=== PATIENT | female | born 1980 | race Caucasian/White ===

== ENCOUNTER 2017-09-29 04:43 | Emergency (ER) | payer MEDICAID ==
[2017-09-29] MEDS ORDERED: Dicyclomine 10 MG Cap PO ONE (05:18)
[2017-09-29] MEDS ORDERED: Acetaminophen 500 MG Tab PO ONE (05:18)
--- NOTE | 2017-09-29 05:24 | EDM.PDOC ---
<Samy Woodruff M - Last Filed: 09/29/17 15:07> ED HPI GENERAL MEDICAL PROBLEM - General Chief Complaint: Abdominal Pain Stated Complaint: ABDOMINAL PAIN Time Seen by Provider: 09/29/17 05:10 - Related Data Allergies Allergy/AdvReac Type Severity Reaction Status Date / Time No Known Allergies Allergy Verified 09/29/17 05:42 Home Meds: Home Meds Ciprofloxacin HCl [Cipro] 500 mg PO BID #20 tablet 09/29/17 [Rx] Dicyclomine HCl [Bentyl] 10 mg PO BID PRN #16 capsule 09/29/17 [Rx] metroNIDAZOLE [Flagyl] 500 mg PO Q8H #30 tab 09/29/17 [Rx] Course - Vital Signs Text/Narrative:: Pt was singed out to me at 7 am due to shift changes, pending imaging results Imaging: CT abd. showed sigmoid diverticulitis. No abscess, no perforation Labs: WBC 12K COATER HAND 4.5 UA neg Impression: Sigmoid Diverticulitis Tx: Cipro, Flagyl and bentyl as a prescription Improved Plan: D/C with instructions Last Recorded V/S: Last Vital Signs Temp 37.2 C 09/29/17 05:00 Pulse 88 09/29/17 09:42 Resp 14 09/29/17 09:42 BP 121/82 09/29/17 09:42 Pulse Ox 100 09/29/17 09:42 - Orders/Labs/Meds Labs: Laboratory Tests 09/29/17 09/29/17 09/29/17 Range/Units 05:58 05:58 08:35 WBC 12.3 H (4.5-12.0) X10-3/uL RBC 4.37 (3.23-5.20) x10(6)uL Hgb 13.0 (11.5-15.5) g/dL Hct 38.1 (30.0-51.3) % MCV 87.1 (80-96) fL MCH 29.8 (27.7-33.6) pg MCHC 34.2 (32.2-35.4) g/dL RDW 12.7 (11.5-15.5) % Plt Count 309 (125-369) X10(3)uL C-Reactive Protein 4.5 H* (0.5-0.9) mg/dL Urine Color Yellow (YELLOW) Urine Appearance Clear (CLEAR) Urine pH 7.0 H (5.0-6.5) Ur Specific [place] 1.005 L (1.010-1.025) Urine Protein Negative (NEGATIVE) mg/dL Urine Glucose (UA) Normal (NEGATIVE) mg/dL Urine Ketones Negative (NEGATIVE) mg/dL Urine Occult Blood Negative (NEGATIVE) Urine Nitrite Negative (NEGATIVE) Urine Bilirubin Negative (NEGATIVE) Urine Urobilinogen Normal (NEGATIVE) mg/dL Ur Leukocyte Esterase Negative (NEGATIVE) Urine RBC 0-5 (0) Urine WBC Not seen (0) Ur Squamous Epith Cells Rare (NS,R,O) Urine Bacteria Rare H (NS) Urine HCG, Qual (NEGATIVE) 09/29/17 Range/Units 08:35 WBC (4.5-12.0) X10-3/uL RBC (3.23-5.20) x10(6)uL Hgb (11.5-15.5) g/dL Hct (30.0-51.3) % MCV (80-96) fL MCH (27.7-33.6) pg MCHC (32.2-35.4) g/dL RDW (11.5-15.5) % Plt Count (125-369) X10(3)uL C-Reactive Protein (0.5-0.9) mg/dL Urine Color (YELLOW) Urine Appearance (CLEAR) Urine pH (5.0-6.5) Ur Specific [place] (1.010-1.025) Urine Protein (NEGATIVE) mg/dL Urine Glucose (UA) (NEGATIVE) mg/dL Urine Ketones (NEGATIVE) mg/dL Urine Occult Blood (NEGATIVE) Urine Nitrite (NEGATIVE) Urine Bilirubin (NEGATIVE) Urine Urobilinogen (NEGATIVE) mg/dL Ur Leukocyte Esterase (NEGATIVE) Urine RBC (0) Urine WBC (0) Ur Squamous Epith Cells (NS,R,O) Urine Bacteria (NS) Urine HCG, Qual Negative (NEGATIVE) Meds: Medications Discontinued Medications Generic Name Dose Route Start Last Admin Trade Name Freq PRN Reason Stop Dose Admin Acetaminophen 1,000 mg 09/29/17 05:18 09/29/17 05:48 Tylenol Extra Strength PO 09/29/17 05:19 1,000 mg ONETIME ONE Administration Dicyclomine HCl 20 mg 09/29/17 05:18 09/29/17 05:48 Bentyl PO 09/29/17 05:19 20 mg ONETIME ONE Administration Lactated Ringer's 1,000 mls @ 1,000 mls/hr 09/29/17 06:38 09/29/17 08:10 Ringers, Lactated IV 09/29/17 07:37 1,000 mls/hr BOLUS ONE Administration Iopamidol 100 ml 09/29/17 07:14 09/29/17 08:00 Isovue-370 (76%) IV 09/29/17 07:15 94 ml ONETIME ONE Administration Sodium Chloride 10 ml 09/29/17 06:38 Saline Flush FLUSH ASDIRECTED PRN Keep Vein Open Departure - Departure Time of Disposition: 09:48 Disposition: Home, Self-Care 01 Condition: Good Clinical Impression: Diverticulitis - Discharge Information *PRESCRIPTION DRUG MONITORING PROGRAM REVIEWED*: Yes *COPY OF PRESCRIPTION DRUG MONITORING REPORT IN PATIENT ERICA: Yes Prescriptions: Ciprofloxacin HCl [Cipro] 500 mg PO BID #20 tablet Dicyclomine HCl [Bentyl] 10 mg PO BID PRN #16 capsule PRN Reason: cramping pain metroNIDAZOLE [Flagyl] 500 mg PO Q8H #30 tab Instructions: Diverticulitis Referrals: PCP,None [Primary Care Provider] - Forms: ED Department Discharge Additional Instructions: Please take the meds as recommended, please f/u with PMD/GI please come back if your symptoms get worse acutely <Mg Prado G - Last Filed: 09/30/17 23:50> ED HPI GENERAL MEDICAL PROBLEM - General Source of Information: Reports: Patient, RN History Limitations: Reports: No Limitations - History of Present Illness INITIAL COMMENTS - FREE TEXT/NARRATIVE: 37 yo female here with low abdominal pain that comes in waves and is associated with mild nausea. Stools have been looser than normal for a couple of days. No fever. No dysuria. No self tx. Has not been seen before tonight for this. Has a pHx of appendectomy. No missed menses. Onset: Gradual Onset Date: 09/26/17 Duration: Day(s):, Getting Worse Location: Reports: Abdomen Quality: Reports: Other (crampy) Severity: Moderate Improves with: Reports: None Worsens with: Reports: Other (unknown) Context: Reports: Other (unknown, stools somewhat loose) Associated Symptoms: Reports: Nausea/Vomiting (no vomiting. ). 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 Denies: Anorexia, Black Stool, Bloody Stool, Constipation, Decreased Appetite, Distension, Flatus , Hematemesis, Hematochezia, Melena, Vomiting : Reports: No Symptoms Musculoskeletal: Reports: No Symptoms Skin: Reports: No Symptoms Neurological: Reports: No Symptoms ED EXAM, GI/ABD - Physical Exam Exam: See Below Exam Limited By: No Limitations General Appearance: Alert, WD/WN, No Apparent Distress Eyes: Bilateral: Normal Appearance Ears: Normal External Exam, Normal Canal, Hearing Grossly Normal, Normal TMs Nose: Normal Inspection, Normal Mucosa, No Blood Throat/Mouth: Normal Inspection, Normal Lips, Normal Oropharynx, Normal Voice, No Airway Compromise Head: Atraumatic, Normocephalic Neck: Normal Inspection, Supple Respiratory/Chest: No Respiratory Distress, Lungs Clear, Normal Breath Sounds, No Accessory Muscle Use Cardiovascular: Regular Rate, Rhythm, No Edema GI/Abdominal Exam: Normal Bowel Sounds, Soft, Tender (infraumbilical). No: Non- Tender, No Distention, Distended, Guarding, Rigid, Rebound, Abnormal Bowel Sounds, Hernia Back Exam: Normal Inspection. No: CVA Tenderness (R), CVA Tenderness (L) Extremities: Normal Inspection, Normal Range of Motion, Non-Tender, No Pedal Edema Neurological: Alert, Oriented, CN II-XII Intact, Normal Cognition, No Motor/ Sensory Deficits Psychiatric: Normal Affect, Normal Mood Skin Exam: Warm, Dry, Intact, Normal Color, No Rash Lymphatic: No Adenopathy Course - Vital Signs Last Recorded V/S: Last Vital Signs Temp 37.2 C 09/29/17 05:00 Pulse 88 09/29/17 09:42 Resp 14 09/29/17 09:42 BP 121/82 09/29/17 09:42 Pulse Ox 100 09/29/17 09:42 - Orders/Labs/Meds Labs: Laboratory Tests 09/29/17 09/29/17 09/29/17 Range/Units 05:58 05:58 08:35 WBC 12.3 H (4.5-12.0) X10-3/uL RBC 4.37 (3.23-5.20) x10(6)uL Hgb 13.0 (11.5-15.5) g/dL Hct 38.1 (30.0-51.3) % MCV 87.1 (80-96) fL MCH 29.8 (27.7-33.6) pg MCHC 34.2 (32.2-35.4) g/dL RDW 12.7 (11.5-15.5) % Plt Count 309 (125-369) X10(3)uL C-Reactive Protein 4.5 H* (0.5-0.9) mg/dL Urine Color Yellow (YELLOW) Urine Appearance Clear (CLEAR) Urine pH 7.0 H (5.0-6.5) Ur Specific [place] 1.005 L (1.010-1.025) Urine Protein Negative (NEGATIVE) mg/dL Urine Glucose (UA) Normal (NEGATIVE) mg/dL Urine Ketones Negative (NEGATIVE) mg/dL Urine Occult Blood Negative (NEGATIVE) Urine Nitrite Negative (NEGATIVE) Urine Bilirubin Negative (NEGATIVE) Urine Urobilinogen Normal (NEGATIVE) mg/dL Ur Leukocyte Esterase Negative (NEGATIVE) Urine RBC 0-5 (0) Urine WBC Not seen (0) Ur Squamous Epith Cells Rare (NS,R,O) Urine Bacteria Rare H (NS) Urine HCG, Qual (NEGATIVE) 09/29/17 Range/Units 08:35 WBC (4.5-12.0) X10-3/uL RBC (3.23-5.20) x10(6)uL Hgb (11.5-15.5) g/dL Hct (30.0-51.3) % MCV (80-96) fL MCH (27.7-33.6) pg MCHC (32.2-35.4) g/dL RDW (11.5-15.5) % Plt Count (125-369) X10(3)uL C-Reactive Protein (0.5-0.9) mg/dL Urine Color (YELLOW) Urine Appearance (CLEAR) Urine pH (5.0-6.5) Ur Specific [place] (1.010-1.025) Urine Protein (NEGATIVE) mg/dL Urine Glucose (UA) (NEGATIVE) mg/dL Urine Ketones (NEGATIVE) mg/dL Urine Occult Blood (NEGATIVE) Urine Nitrite (NEGATIVE) Urine Bilirubin (NEGATIVE) Urine Urobilinogen (NEGATIVE) mg/dL Ur Leukocyte Esterase (NEGATIVE) Urine RBC (0) Urine WBC (0) Ur Squamous Epith Cells (NS,R,O) Urine Bacteria (NS) Urine HCG, Qual Negative (NEGATIVE) Meds: Medications Discontinued Medications Generic Name Dose Route Start Last Admin Trade Name Freq PRN Reason Stop Dose Admin Acetaminophen 1,000 mg 09/29/17 05:18 09/29/17 05:48 Tylenol Extra Strength PO 09/29/17 05:19 1,000 mg ONETIME ONE Administration Dicyclomine HCl 20 mg 09/29/17 05:18 09/29/17 05:48 Bentyl PO 09/29/17 05:19 20 mg ONETIME ONE Administration Lactated Ringer's 1,000 mls @ 1,000 mls/hr 09/29/17 06:38 09/29/17 08:10 Ringers, Lactated IV 09/29/17 07:37 1,000 mls/hr BOLUS ONE Administration Iopamidol 100 ml 09/29/17 07:14 09/29/17 08:00 Isovue-370 (76%) IV 09/29/17 07:15 94 ml ONETIME ONE Administration Sodium Chloride 10 ml 09/29/17 06:38 Saline Flush FLUSH ASDIRECTED PRN Keep Vein Open Departure - Departure Condition: Fair - Discharge Information *PRESCRIPTION DRUG MONITORING PROGRAM REVIEWED*: Not Applicable *COPY OF PRESCRIPTION DRUG MONITORING REPORT IN PATIENT ERICA: Not Applicable
[2017-09-29] MEDS ORDERED: Lactated Ringers 1,000 ML IV ONE (06:38)
[2017-09-29] MEDS ORDERED: Sodium Chloride 0.9% 10 ML Syringe FLUSH PRN (06:38)
[2017-09-29] MEDS ORDERED: Iopamidol 755 Mg/ML 100 ML Bottle IV ONE (07:14)
== END 2017-09-29 10:13 | disposition home or self-care (01) ==
LOC: FB.ED 04:43
DX: K57.32 Diverticulitis of large intestine without perforation or abscess without bleeding (principal)
CPT/HCPCS: 36415; 74177; 81001; 81025; 85027; 86140; 96360; 99284; A9270; J7120; Q9967

== ENCOUNTER 2020-08-25 01:20 | Emergency (ER) | payer MEDICAID ==
--- NOTE | 2020-08-25 01:43 | EDM.PDOC ---
ED HPI GENERAL MEDICAL PROBLEM - General Chief Complaint: Skin Complaint Stated Complaint: BLISTERS/ RASH ON LEG ALLERGIC REACTION Time Seen by Provider: 08/25/20 01:39 Source of Information: Reports: Patient History Limitations: Reports: No Limitations - History of Present Illness INITIAL COMMENTS - FREE TEXT/NARRATIVE: 40-year-old female who reports onset 3 days ago of rash on her right lower leg. It initially was a maculopapular rash with some blisters and it seemed to spread over her leg and then also she has developed areas on her left lower leg and now both of her forearm areas. This is a very itchy rash and several areas on her right lower leg are now broken blisters with oozing and increased redness and some swelling and increased warmth in the area as well. She does report a 5/10 level of itching and burning type pain associated with the right lower leg. She has had no fevers or chills. There has been no nausea or vomiting. No difficulty breathing. No weakness or dizziness. She has been eating and drinking normally. He presents to the emergency department via private vehicle with her . They have apparently been on a camping trip for the past 3-4 days and no one else in her family has a similar type rash. They came directly from their camping trip tonight to the emergency department for evaluation. She has been taking oral Benadryl with minimal relief of her itching. She has also been using [id number] Benadryl cream without any relief of her symptoms as well. There are no other associated signs or symptoms. There are no other modifying factors. 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 Oral Benadryl.) Bilateral Leg Pain Score (Numeric/FACES): 2 - Related Data Allergies Allergy/AdvReac Type Severity Reaction Status Date / Time No Known Allergies Allergy Verified 09/29/17 05:42 Home Meds: Home Meds Doxycycline Hyclate 100 mg PO BID #14 tablet 08/25/20 [Rx] Hydrocortisone [Hydrocortisone 2.5% Crm] 30 gm TOP BID #1 tube 08/25/20 [Rx] Mupirocin Oint [Bactroban Oint] 22 gm TP BID #1 tube 08/25/20 [Rx] hydrOXYzine pamoate [Vistaril] 50 mg PO Q6H PRN #20 cap 08/25/20 [Rx] Past Medical History - Past Health History Medical/Surgical History: Denies Medical/Surgical History (No chronic medical problems. 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[employer].) ED ROS GENERAL - Review of Systems Review Of Systems: See Below Constitutional: Denies: Fever, Chills, Malaise, Fatigue HEENT: Denies: Rhinitis, Throat Pain, Other Respiratory: Denies: Shortness of Breath, Cough Cardiovascular: Denies: Chest Pain, Palpitations Endocrine: Denies: Polydypsia, Polyuria GI/Abdominal: Denies: Nausea, Vomiting : Denies: Dysuria, Hematuria Musculoskeletal: Denies: Back Pain, Leg Pain Skin: Reports: Rash, Erythema Neurological: Denies: Dizziness, Headache Psychiatric: Denies: Confusion Hematologic/Lymphatic: Denies: Easy Bleeding, Easy Bruising Immunologic: Denies: Anaphylaxis, Food Allergy ED EXAM, SKIN/RASH Exam: See Below Exam Limited By: No Limitations General Appearance: Alert, No Apparent Distress, Obese Eye Exam: Bilateral Eye: EOMI, Normal Inspection (Sclera are anicteric) Ears: Normal External Exam, Hearing Grossly Normal Nose: Normal Inspection, Normal Mucosa, No Blood Throat/Mouth: Normal Inspection, Normal Oropharynx, Normal Voice, No Airway Compromise Head: Atraumatic, Normocephalic Neck: Normal Inspection, Supple, Non-Tender, Full Range of Motion. No: Lymphadenopathy (L), Other Respiratory/Chest: No Respiratory Distress, Lungs Clear, Normal Breath Sounds, No Accessory Muscle Use, Chest Non-Tender Cardiovascular: Normal Peripheral Pulses, Regular Rate, Rhythm, No Murmur Peripheral Pulses: 2+: Radial (L), Radial (R) GI/Abdominal: Normal Bowel Sounds, Soft, Non-Tender, No Mass Back Exam: Normal Inspection Extremities: Normal Range of Motion, Normal Capillary Refill, Pedal Edema (Right lower leg) Neurological: Alert, Oriented, CN II-XII Intact, Normal Cognition, No Motor/Sensory Deficits Psychiatric: Normal Affect, Normal Mood Skin: Warm, Dry, Excoriations, Increased Warmth, Rash Location, Skin: Upper Extremity, Right, Upper Extremity, Left, Lower Extremity, Right, Lower Extremity, Left Characteristics: Confluent, Patchy, Vesicular Associated features: Warmth, Tenderness, Swelling, Crusting, Weeping Course - Vital Signs Last Recorded V/S: Last Vital Signs Temp 37.0 C 08/25/20 01:30 Pulse 88 08/25/20 01:30 Resp 18 08/25/20 01:30 BP 155/98 H 08/25/20 01:30 Pulse Ox 98 08/25/20 01:30 - Orders/Labs/Meds Orders: Active Orders 24 hr Category Date Time Status Accu Check [Blood Glucose Check, Bedside] [RC] ONETIME Care 08/25/20 02:03 Active Labs: Laboratory Tests 08/25/20 Range/Units 02:04 POC Glucose 103 (80-116) mg/dL Meds: Medications Discontinued Medications Generic Name Dose Route Start Last Admin Trade Name Crow PRN Reason Stop Dose Admin Doxycycline Hyclate 200 mg 08/25/20 02:03 08/25/20 02:10 Doxycycline 100 Mg Tab PO 08/25/20 02:04 200 mg ONETIME ONE Administration - Re-Assessments/Exams Free Text/Narrative Re-Assessment/Exam: 08/25/20 02:00: Patient with evolving rash on her legs and her arms. She is nontoxic appearing. The areas appear to be maculopapular with scattered blisters and with blisters on her right lower leg that appeared to be bacterially superinfected. This does have an appearance of a contact dermatitis and most probably poison casie. Some of the areas on her right lower leg appeared to be cellulitic as well. I will have the nursing staff check a blood sugar but the plan will be hydrocortisone cream to the areas sparingly and then she is to apply Bactroban ointment to the open areas on her right lower leg. Additionally I will also place the patient on doxycycline 100 mg twice daily with her first dose now of doxycycline at 200 mg. I will also give the patient a prescription for Vistaril that she can use for itching as well. 08/25/20 02:07: The patient's blood sugar was 103. I discussed all of the above with the patient and she is in agreement with this plan. Departure - Departure Time of Disposition: 02:10 Disposition: Home, Self-Care 01 Condition: Good Clinical Impression: Wound infection, Cellulitis of right lower leg Contact dermatitis Qualifiers: Contact dermatitis type: irritant Contact dermatitis trigger: unspecified trigger Qualified Code(s): L24.9 - Irritant contact dermatitis, unspecified cause - Discharge Information Prescriptions: Mupirocin Oint [Bactroban Oint] 22 gm TP BID #1 tube Doxycycline Hyclate 100 mg PO BID #14 tablet Hydrocortisone [Hydrocortisone 2.5% Crm] 30 gm TOP BID #1 tube hydrOXYzine pamoate [Vistaril] 50 mg PO Q6H PRN #20 cap PRN Reason: Itching Instructions: Poison Casie Dermatitis, [id number], Wound Infection, [id number], Cellulitis, Adult, [id number] Referrals: PCP,None [Primary Care Provider] - Forms: ED Department Discharge Additional Instructions: The areas of rash appear to be a contact dermatitis and I think that this is most probably poison casei. The areas on your right lower leg with the open blisters and the areas of redness and increased warmth, I think, represent a bacterial infection on top of the poison casie. You should apply the hydrocortisone cream to all areas of the rash twice daily. On the areas of the blistering with C open wounds, you should clean these areas with water and then apply the hydrocortisone cream sparingly and rub in completely. You should then apply the Bactroban ointment to the open wound areas after the hydrocortisone cream twice daily. I am also placing you on an oral antibiotic (doxycycline). I have also given you a prescription for Vistaril which should help with the itching. Increase your fluid intake. Your blood sugar was 103 today which is normal. Follow-up with your primary doctor if this is not resolving by Thursday or Thursday of next week. Back to the emergency department for fever, vomiting, spreading areas of redness or any other concerning signs or symptoms. Sepsis Event Note (ED) - Evaluation Sepsis Screening Result: No Definite Risk - Focused Exam Vital Signs: Vital Signs Temp Pulse Resp BP Pulse Ox 08/25/20 01:30 37.0 C 88 18 155/98 H 98 - My Orders Last 24 Hours: My Active Orders 08/25/20 02:03 Accu Check [Blood Glucose Check, Bedside] [RC] ONETIME - Assessment/Plan Last 24 Hours: My Active Orders 08/25/20 02:03 Accu Check [Blood Glucose Check, Bedside] [RC] ONETIME
[2020-08-25] MEDS ORDERED: Doxycycline 100 MG Tab PO ONE (02:03)
== END 2020-08-25 02:23 | disposition home or self-care (01) ==
LOC: FB.ED 01:20
DX: L03.115 Cellulitis of right lower limb (principal); L24.9 Irritant contact dermatitis, unspecified cause
CPT/HCPCS: 82947; 99283; A9270

== ENCOUNTER 2024-05-06 17:44 | Emergency (ER) | payer BC, MEDICAID ==
[2024-05-06] MEDS: Tranexamic Acid 1,000 MG in Sodium Chloride 0.9% 50 ML IV ONE (18:33)
== END 2024-05-06 19:20 | disposition home or self-care (01) ==
LOC: FB.ED 17:44
DX: N93.9 Abnormal uterine and vaginal bleeding, unspecified (principal); Z90.49 Acquired absence of other specified parts of digestive tract; Z79.899 Other long term (current) drug therapy
CPT/HCPCS: 36415; 85018; 96365; 99283; 99284-25

== ENCOUNTER 2024-11-20 23:07 | Emergency (ER) | payer BC, OTHER | END 2024-11-21 00:04 | disposition home or self-care (01) | LOC: SUPCPDRO 23:07 → FB.ED 23:07 | DX: S05.02XA Injury of conjunctiva and corneal abrasion without foreign body, left eye, initial encounter (principal); H11.32 Conjunctival hemorrhage, left eye; I10 Essential (primary) hypertension; Z90.49 Acquired absence of other specified parts of digestive tract; W26.8XXA Contact with other sharp object(s), not elsewhere classified, initial encounter | CPT/HCPCS: 99283 ==